=== PATIENT | male | born 1970 | race Caucasian/White ===

== ENCOUNTER 2018-01-28 20:21 | Emergency (ER) | payer MEDICAID ==
[~2018-01-28] VITALS: Ht 180.3 cm; Wt 118.4 kg
[2018-01-28 20:36] VITALS: BP 125/74
[2018-01-28 20:45] VITALS: BP 132/80
--- NOTE | 2018-01-28 20:59 | NUR ---
TO JENNA Mcgrath
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
[2018-01-28] MEDS ORDERED: ONDANSETRON 4 MG/2 ML VIAL IM ONE (22:00)
[2018-01-28] MEDS ORDERED: KETOROLAC 60 MG/2 ML VIAL IM ONE (22:05)
--- NOTE | 2018-01-28 22:25 | NUR ---
PT TAKEN TO CT
[2018-01-28 23:10] VITALS: BP 127/78
--- NOTE | 2018-01-29 00:14 | NUR ---
PT WAS TOLD BY DR VILLEGAS THAT HE WAS GOING TO GIVE HIM PAIN MEDICATION BEFORE HE LEFT BUT PT STATES "I DONT WANT IT" AND LEFT OUR FACILITY Addendum: 01/29/18 at 0020 by MEDHAN PT WAS TOLD BY DR VILLEGAS THAT HE WAS GOING TO GIVE HIM PAIN MEDICATION BEFORE HE LEFT BUT PT STATES "I DONT WANT IT" AND LEFT OUR FACILITY; DR VILLEGAS MADE AWARE
--- NOTE | 2018-01-29 00:14 | NUR ---
PATIENT ELOPED FROM FACILITY. DISCHARGE INSTRUCTIONS NOT GIVEN TO PATIENT. DR. VILLEGAS NOTIFIED.
[2018-01-29] MEDS ORDERED: oxyCODONE 10 MG TABER PO ONE (00:15)
== END 2018-01-29 00:20 | disposition left against medical advice (07) ==
LOC: MED 20:21
DX: S06.0X9A Concussion with loss of consciousness of unspecified duration, initial encounter (principal); M25.561 Pain in right knee; M25.562 Pain in left knee; Z88.6 Allergy status to analgesic agent; Z88.8 Allergy status to other drugs, medicaments and biological substances; V43.52XA Car driver injured in collision with other type car in traffic accident, initial encounter; Y93.I9 Activity, other involving external motion; Y92.488 Other paved roadways as the place of occurrence of the external cause; Y99.8 Other external cause status
CPT/HCPCS: 70450; 71045; 72125; 73560; 96372; 99284; J1885; J2405